=== PATIENT | male | born 1955 | race Caucasian/White ===

== ENCOUNTER → 2024-05-23 | Outpatient (CLI) | payer MEDICARE ==
[2024-05-23 21:21] VITALS: PULSE 62; RESP 16
[2024-05-23 22:00] VITALS: PULSE 60; RESP 16
[2024-05-23 22:30] VITALS: PULSE 58; RESP 16
[2024-05-23 23:00] VITALS: PULSE 58; RESP 16
[2024-05-23 23:30] VITALS: PULSE 60; RESP 18
[2024-05-24] VITALS (11 sets, daily range): PULSE 58–68; RESP 12–16
== END | disposition home or self-care (01) ==
LOC: SLP 19:49
PROVIDERS: ATTEND Physician Assistant Medical
DX: G47.33 Obstructive sleep apnea (adult) (pediatric) (principal)
CPT/HCPCS: 95810

== ENCOUNTER → 2024-06-07 | Outpatient (CLI) | payer MEDICARE ==
[2024-06-07 21:32] VITALS: PULSE 54; RESP 15
[2024-06-07 22:00] VITALS: PULSE 53; RESP 13
[2024-06-07 22:39] VITALS: PULSE 55; RESP 25
[2024-06-07 23:03] VITALS: PULSE 54; RESP 13
[2024-06-07 23:30] VITALS: PULSE 54; RESP 14
[2024-06-08] VITALS (11 sets, daily range): PULSE 52–56; RESP 10–20
== END | disposition home or self-care (01) ==
LOC: SLP 20:03
PROVIDERS: ATTEND Physician Assistant Medical
DX: G47.33 Obstructive sleep apnea (adult) (pediatric) (principal)
CPT/HCPCS: 95811

== ENCOUNTER → 2024-09-08 | Outpatient (CLI) | payer MEDICARE | END | disposition home or self-care (01) | LOC: SHCH 10:24 | PROVIDERS: ATTEND Student in an Organized Health Care Education/Training Program | DX: R00.2 Palpitations (principal) | CPT/HCPCS: 93306 ==

== ENCOUNTER → 2024-09-16 | Outpatient (CLI) | payer MEDICARE ==
[2024-09-16 16:34] LABS: HEMOGLOBIN A1C 5.2 % (4.0-6.0)
[2024-09-16 16:44] LABS: ALBUMIN 4.1 g/dL (3.5-5.0); BILIRUBIN,TOTAL 0.9 mg/dL (0.2-1.0); CREATININE 1.5 mg/dL (0.5-1.3); POTASSIUM 3.7 mmol/L (3.5-5.1); TOTAL PROTEIN, SERUM 7.2 g/dL (6.0-8.3)
--- NOTE | 2024-09-28 10:05 | HMCSR ---
APPROVED REPORT Laterality: Bilateral Doppler Spectral Velocity Analysis PSV / EDVPSV / EDV ECA (R) 118 / cm/sECA (L) 86 / cm/s dICA (R) 59 / 28 cm/sdICA (L) 85 / 34 cm/s Karen (R) 59 / 23 cm/smICA (L) 83 / 33 cm/s pICA (R) 75 / 28 cm/spICA (L) 75 / 33 cm/s dCCA (R) 103 / 24 cm/sdCCA (L) 104 / 24 cm/s mCCA (R) 124 / 29 cm/smCCA (L) 122 / 29 cm/s pCCA (R) 95 / 25 cm/spCCA (L) 127 / 23 cm/s Vert (R) 36 / cm/sVert (L) 60 / cm/s Subl. (R) 118 / cm/sSubl. (L) 135 / cm/s ICA/CCA 0.60ICA/CCA 0.67 Technologist Impression Minimal plaque noted in the bilateral carotid arteries without hemodynamic significance. The bilateral vertebral arteries reflect antegrade flow. Conclusion No hemodynamically significant stenosis. Conclusion No hemodynamically significant stenosis.
== END | disposition home or self-care (01) ==
LOC: LAB 13:30
PROVIDERS: ATTEND Student in an Organized Health Care Education/Training Program
DX: E78.5 Hyperlipidemia, unspecified (principal); R00.2 Palpitations; R00.1 Bradycardia, unspecified; I10 Essential (primary) hypertension; I95.1 Orthostatic hypotension; R94.31 Abnormal electrocardiogram [ECG] [EKG]; I69.993 Ataxia following unspecified cerebrovascular disease; R09.89 Other specified symptoms and signs involving the circulatory and respiratory systems; Z88.8 Allergy status to other drugs, medicaments and biological substances; Z79.899 Other long term (current) drug therapy
CPT/HCPCS: 36415; 80053; 80061; 83036; 93880